=== PATIENT | male | born 1985 | race Two or more races ===

== ENCOUNTER 2023-02-08 19:15 | Emergency (ER) | payer OTHER ==
[~2023-02-08] VITALS: Ht 165.1 cm; Wt 81.6 kg
[2023-02-08] MEDS ORDERED: METRONIDAZOLE500 MG PO (22:11)
[2023-02-08] MEDS ORDERED: PEPCID AC20 MG PO (22:11)
[2023-02-08] MEDS ORDERED: CIPRO500 MG PO (22:11)
== END 2023-02-09 01:25 | disposition home or self-care (01) ==
LOC: ER 19:15
DX: A05.9 Bacterial foodborne intoxication, unspecified (principal); K52.89 Other specified noninfective gastroenteritis and colitis; R11.10 Vomiting, unspecified; Z20.822 Contact with and (suspected) exposure to COVID-19; Z88.6 Allergy status to analgesic agent